=== PATIENT | male | born 1975 | race Caucasian/White ===

== ENCOUNTER 2017-09-18 15:59 | Emergency (ER) | payer SELFPAY | END 2017-09-18 16:50 | disposition left against medical advice (07) | LOC: NED 15:59 | DX: M79.673 Pain in unspecified foot (principal) | CPT/HCPCS: 99281 ==

== ENCOUNTER 2017-09-19 00:29 | Emergency (ER) | payer SELFPAY ==
[2017-09-19 00:43] VITALS: BP 106/55; PULSE 77; RESP 16; TEMP 97.4; O2SAT 96
[2017-09-19 04:10] VITALS: BP 111/55; PULSE 64; RESP 16; O2SAT 99
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
== END 2017-09-19 06:03 | disposition home or self-care (01) ==
LOC: NEPD 00:29
DX: M79.671 Pain in right foot (principal); M79.672 Pain in left foot; F17.200 Nicotine dependence, unspecified, uncomplicated; Z59.0 Homelessness
CPT/HCPCS: 99282